=== PATIENT | male | born 1985 | race Caucasian/White ===

== ENCOUNTER 2017-07-03 20:15 | Emergency (ER) | END 2017-07-04 01:00 | disposition home or self-care (01) ==

== ENCOUNTER 2017-07-28 21:43 | Emergency (ER) | END 2017-07-29 01:26 | disposition home or self-care (01) ==

== ENCOUNTER 2017-11-15 19:48 | Emergency (ER) | END 2017-11-15 22:05 | disposition home or self-care (01) ==

== ENCOUNTER 2018-06-07 20:59 | Emergency (ER) | END 2018-06-08 01:10 | disposition home or self-care (01) ==